=== PATIENT | female | born 1975 | race Two or more races ===

== ENCOUNTER 2018-07-10 07:30 | Day surgery (SDC) | payer MEDICAID, OTHER ==
[2018-07-10] MEDS ORDERED: ROCURONIUM 10MG/ML 10ML VIAL IV ONE (09:35)
[2018-07-10] MEDS ORDERED: fentaNYL CITRATE 100 MCG/2 ML VL ONE ×2 (09:35→10:01)
[2018-07-10] MEDS ORDERED: MIDAZOLAM HCL 1MG/1ML-2 ML VIAL ONE (09:35)
[2018-07-10] MEDS ORDERED: PROPOFOL 10 MG/ML 20 ML IV ONE (09:36)
[2018-07-10] MEDS ORDERED: ONDANSETRON HCL 4 MG/2 ML VIAL IV ONE (10:30)
[2018-07-10] MEDS ORDERED: HYDROmorphone HCL 2 MG/ML VL IV PRN (10:30)
[2018-07-10] MEDS ORDERED: hydrALAZINE HCL 20 MG/ML VL IV PRN (10:30)
[2018-07-10] MEDS ORDERED: ePHEDrine SULFATE 50 MG/ML AMP IV PRN (10:30)
[2018-07-10 11:35] VITALS: BP 127/54
== END 2018-07-10 11:44 | disposition home or self-care (01) ==
LOC: SUR 07:30
PROVIDERS: ATTEND Obstetrics & Gynecology Gynecologic Oncology
DX: N85.8 Other specified noninflammatory disorders of uterus (principal); N83.202 Unspecified ovarian cyst, left side; N92.0 Excessive and frequent menstruation with regular cycle; E11.9 Type 2 diabetes mellitus without complications; D64.9 Anemia, unspecified; F41.9 Anxiety disorder, unspecified; Z3A.08 8 weeks gestation of pregnancy
CPT/HCPCS: 58558; 58662; J3010; J2250; J2405; J2704